=== PATIENT | male | born 1975 | race American Indian/Alaskan Native ===

== ENCOUNTER 2019-11-03 07:55 | Day surgery (SDC) | payer OTHER ==
[~2019-11-03 07:55] MED LIST: SODIUM CHLORIDE 0.9% 1000 ML 1,000 ML IV SCH
[2019-11-03] MEDS ORDERED: LIDOCAINE MPF (2%) 20 MG/1 ML VIAL 5 ML ONE (08:30)
--- NOTE | 2019-11-03 08:39 | Anesthesia Consultation ---
Anesthesia Consult and Med Hx Date of service: 11/03/19 - Airway Anesthetic Teeth Evaluation: Good ROM Head & Neck: Adequate Mental/Hyoid Distance: Adequate Mallampati Class: Class II Intubation Access Assessment: Probably Good - Pulmonary Exam CTA: Yes - Cardiac Exam Cardiac Exam: RRR - Pre-Operative Health Status ASA Pre-Surgery Classification: ASA2 Proposed Anesthetic Plan: MAC - Pulmonary Hx Smoking: No Hx Respiratory Symptoms: No - Cardiovascular System Hx Hypertension: No - Central Nervous System CVA: No - Gastrointestinal Hx Gastroesophageal Reflux Disease: No - Endocrine Hx Renal Disease: No Hx Liver Disease: No Hx Insulin Dependent Diabetes: No Hx Non-Insulin Dependent Diabetes: No Hx Thyroid Disease: No - Other Systems Hx Cancer: Yes (hx colon ca no longer on chemotherapy) Hx Obesity: Yes (BMI 34) - Additional Comments Anesthesia Medical History Comments: No hx anesthetic complications.
--- NOTE | 2019-11-03 08:40 | Anesthesia Day of Surgery ---
Anesthesia Day of Surgery - Day of Surgery Patient Examined: Yes Patient H&P Reviewed: Yes Patient is NPO: Yes
[2019-11-03] MEDS ORDERED: propofoL 200 MG/20 ML VIAL IV ONE ×2 (09:50)
--- NOTE | 2019-11-03 10:23 | Procedure Note ---
Date of procedure: 11/03/19 Pre-op diagnosis: Hematochezia/ H/O Rectal Cancer (s/p Surgery and Chemotherapy) Post-op diagnosis: other (Hematochezia secondary to mild to moderate Internal Hemorrhoid (not significant enough for banding) / Solitary, Small Rectal Polyp (removed by Cold Biopsy)/Solitary, Left Colon Diverticuli/ Normal looking Surgical and Anastomotic site) Procedure: Colonoscopy with Cold Biopsy Anesthesia: MAC Surgeon: SALOME ALLEN Estimated blood loss: minimal Pathology: list Specimen disposition: to lab Condition: stable Disposition: same day (OTC hemorrhoidal medication. Avoid aspirin and NSAID for 4 days; otherwise resume home medication.)
[2019-11-03 11:17] VITALS: BP 115/74
--- NOTE | 2019-11-03 11:23 | Post Anesthesia Evaluation ---
- Post Anesthesia Evaluation Patient Participated: Yes Airway Patent: Yes Stable Respiratory Function: Yes Nausea/Vomiting: No Temp > 96.8F: Yes Pain Manageable: Yes Adequeate Hydration: Yes Anesthesia Complications: No
--- NOTE | 2019-11-03 11:54 | Operative Report ---
PROCEDURE: Colonoscopy with cold biopsy. 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 He has recently been noticing some GI bleeding. Colonoscopy was done to make sure there was not any recurrence of any polyps or recurrence of any additional growth within the rectosigmoid area. DESCRIPTION OF PROCEDURE: The procedure was done after getting informed consent with MAC anesthesia. Initial rectal exam was unremarkable. Instrument was passed through the rectum onto the cecum, which was identified with ileocecal valve and the appendiceal orifice. Visualization was fair to good. The terminal ileum was intubated showed normal mucosa. The cecum was also viewed on the retroverted fashion. No additional pathology was noted. Cecum, ascending colon, transverse colon showed normal mucosa. There was a solitary diverticula noted in the left colon and the remaining portion of the left colon other than for the solitary diverticula, it appeared to be normal. The anastomotic site where the surgery was done also appeared to be good. There was a small 7-8 mm polyp little distal to the anastomotic site that was removed by cold biopsy and the rectum showed [id number] internal hemorrhoids, not significant enough for banding, which may have been the cause of the patient's hematochezia. There was minimal bleeding from the polypectomy site. No complications associated with the procedure. ASSESSMENT: History of rectal cancer, status post surgery and chemotherapy. Hematochezia secondary [id number] internal hemorrhoid. Solitary small rectal polyp that was removed by cold biopsy. Solitary left colon diverticula. Normal ileal mucosa. Again, there was minimal bleeding from the polypectomy site. No complications associated with the procedure. PLAN: Plan is to encourage the patient to be treated with [id number] hemorrhoidal medications. Avoid aspirin and aspirin-related products for the next few days and followup in the office in 1-2 weeks' time. The patient will also be encouraged to take some more fiber supplements in his diet. Procedure was done in the GI lab with assistance of the GI lab team, which included RN, Neris Hodgson; Tera lowe and with assistance of anesthesia. JOB# [id number] RACHAEL/KRYSTAL
== END 2019-11-03 07:56 | disposition home or self-care (01) ==
LOC: EDSEX 07:55 → GIO 07:55
DX: K92.2 Gastrointestinal hemorrhage, unspecified (principal); K92.1 Melena; K64.8 Other hemorrhoids; K62.1 Rectal polyp; E78.00 Pure hypercholesterolemia, unspecified; Z68.34 Body mass index [BMI] 34.0-34.9, adult; Z79.899 Other long term (current) drug therapy; Z85.038 Personal history of other malignant neoplasm of large intestine
CPT/HCPCS: 88305; J2704; J7030